=== PATIENT | male | born 1950 | race Caucasian/White ===

== ENCOUNTER 2022-03-07 15:53 | Outpatient (RCR) | payer MEDICARE, SELFPAY ==
--- NOTE | 2022-03-07 16:38 | PTOPEVAL ---
Thank you for referring Aditya Trujillo to [facility].? The patient is scheduled to be seen for therapy? ____x/week for ___ weeks. Please review, sign, date and return this plan of care JAMES. I agree with and certify that the following plan of care is medically necessary. Referring Physician Date Admitting Provider: Attending Provider: Sina Glaser, MD Referring Provider: *PT Outpatient Evaluation Start: 03/07/22 16:08 Freq: Status: Active Protocol: Document 03/07/22 16:10 [facility] (Rec: 03/07/22 16:38 [facility] [email or web address]) Therapy Assessment Status Assessment Status Assessment Status Evaluation Evaluation Information Problem Diagnosis L leg pain Onset 03/02/22 Additional Evaluation Detail LEFS = 52% functionally declined Subjective Information patient reports he has pain in Query Text:As Reported By Patient/ the L LE. he reports he isnot Family sure what happened. he reports the only thing he can recall is sitting on the ground with his granddaughter and trying to get up a few times. he reports the pain is up in his L posterior hip/ buttock. he reports he has a history of soreness in the lower back. he reports last he was pretty bad at the MD's office. however, since starting pain meds he has been feeling better. he reports the pain will come down the leg, along the side of his thigh, and down to his calf. he reports sitting and wlaking are alright, but he is stiff in the morning. he reports no NTB. Prior Level of Function Comments Additional Prior Level of Function prior to 2 weeks ago, he was Comments getting around well. he reports he was using no AD and no pain meds. Pain Assessment Timing of Pain Assessment Timing of Pain Assessment Assessment Pain Scale Pain Scale Used Numeric (1 - 10) Self Report Pain Assessment Left Leg(s) Reported Pain Level 2 Greatest Pain Intensity 8 Pain Score Pain Score 2: Self Report Interventions Used Interventions Used By Clinicians Medication,Rest Cervical and Lumbar ROM Lumbar ROM Lumbar Flexion A
--- NOTE | 2022-03-07 16:46 | PTOPEVAL ---
Thank you for referring Aditya Trujillo to [facility].? The patient is scheduled to be seen for therapy? ____x/week for ___ weeks. Please review, sign, date and return this plan of care JAMES. I agree with and certify that the following plan of care is medically necessary. Referring Physician Date Admitting Provider: Attending Provider: Sina Glaser, MD Referring Provider: *PT Outpatient Evaluation Start: 03/07/22 16:08 Freq: Status: Active Protocol: Document 03/07/22 16:10 [facility] (Rec: 03/07/22 16:38 [facility] [email or web address]) Therapy Assessment Status Assessment Status Assessment Status Evaluation Evaluation Information Problem Diagnosis L leg pain Onset 03/02/22 Additional Evaluation Detail LEFS = 52% functionally declined Subjective Information patient reports he has pain in Query Text:As Reported By Patient/ the L LE. he reports he isnot Family sure what happened. he reports the only thing he can recall is sitting on the ground with his granddaughter and trying to get up a few times. he reports the pain is up in his L posterior hip/ buttock. he reports he has a history of soreness in the lower back. he reports last he was pretty bad at the MD's office. however, since starting pain meds he has been feeling better. he reports the pain will come down the leg, along the side of his thigh, and down to his calf. he reports sitting and wlaking are alright, but he is stiff in the morning. he reports no NTB. Prior Level of Function Comments Additional Prior Level of Function prior to 2 weeks ago, he was Comments getting around well. he reports he was using no AD and no pain meds. Pain Assessment Timing of Pain Assessment Timing of Pain Assessment Assessment Pain Scale Pain Scale Used Numeric (1 - 10) Self Report Pain Assessment Left Leg(s) Reported Pain Level 2 Greatest Pain Intensity 8 Pain Score Pain Score 2: Self Report Interventions Used Interventions Used By Clinicians Medication,Rest Cervical and Lumbar ROM Lumbar ROM Lumbar Flexion A
--- NOTE | 2022-03-23 16:31 | PTOPEVAL ---
Thank you for referring Aditya Trujillo to [facility].? The patient is scheduled to be seen for therapy? __2__x/week for 6 visits. Please review, sign, date and return this plan of care JAMES. I agree with and certify that the following plan of care is medically necessary. Referring Physician Date Admitting Provider: Attending Provider: Sina Glaser, Referring Provider: Ayan Sierra MD *PT Outpatient Evaluation Start: 03/07/22 16:08 Freq: Status: Active Protocol: Document 03/23/22 16:00 [facility] (Rec: 03/23/22 16:30 [facility] [email or web address]) Therapy Assessment Status Assessment Status Assessment Status Progress Evaluation Information Problem Diagnosis left leg pain, left shoulder pain, rotator cuff tear Onset 03/02/22 Subjective Information Pt. enters the clinic with new Query Text:As Reported By Patient/ order to address left Family shoulder pain. He reports that he has had on/off therapy to address shoulder pain in the past. He states that in the last month the soreness in the left shoulder has increased. Pt. reports that he underwent MRI of the left shoulder which revealed a rotator cuff tear. He reports that the doctor felt that he is not a surgical candidate. He reports most pain with reaching overhead and pain is mostly located on the backside of the shoulder and occassionally into the front side. He reports that he would like to improve his mobility reaching overhead and reduce the pain in the left shoulder. Pt. reports that left leg pain is less intense and he is no longer walking with a cane. He reports that he would like to focus on the left shoulder for the remainder of therapy. Pain Assessment Timing of Pain Assessment Timing of Pain Assessment Pre-Treatment Pain Scale Pain Scale Used Numeric (1 - 10) Self Report Pain Assessment Left Shoulder(s) Reported Pain Level 2 Left Leg(s) Reported Pain Level 1 Pain Score
--- NOTE | 2022-04-07 16:00 | PTOPEVAL ---
Thank you for referring Aditya Trujillo to [facility].? The patient is scheduled to be seen for therapy? 1x/week for 2 visits. Please review, sign, date and return this plan of care JAMES. I agree with and certify that the following plan of care is medically necessary. Referring Physician Date Admitting Provider: Attending Provider: Sina Glaser, Referring Provider: Ayan Sierra MD *PT Outpatient Evaluation Start: 03/07/22 16:08 Freq: Status: Active Protocol: Document 04/07/22 15:00 [facility] (Rec: 04/07/22 16:00 [facility] [email or web address]) Therapy Assessment Status Assessment Status Assessment Status Progress Evaluation Information Problem Diagnosis Left shoulder pain, L rotator cuff tear Onset 03/02/22 Subjective Information Pt reports his shoulder is Query Text:As Reported By Patient/ slightly more sore today. He Family thinks it might be partly from holding his granddaughter on his arm. He does not really feel limited in what he does around the house, just has some soreness or discomfort when performing these activities. Pain Assessment Timing of Pain Assessment Timing of Pain Assessment Pre-Treatment Pain Scale Pain Scale Used Numeric (1 - 10) Self Report Pain Assessment Left Shoulder(s) Reported Pain Level 2 Left Leg(s) Reported Pain Level 0 Pain Score Pain Score 2,0: Self Report Interventions Used Interventions Used By Clinicians Activity or ADL's,Education, Electrical Stimulation, Exercise,Heat Upper Extremity Range of Motion General Upper Extremity Range of Motion Gross Upper Extremity Range of Motion L shoulder flexion AROM: 155 Comments degrees L shoulder abd AROM: 96 deg L shoulder ER: 83 degrees L shoulder IR HBB: T11 (R T11) Upper Extremity Muscle Strength Testing General Upper Extremity Strength Gross Upper Extremity Strength Comments R shoulder flexion: 5/5 L shoulder flexion: 4+/5 R shoulder abduction: 5/5 L shoulder abduction: 5/5 R shoulder ER: 5/5 L shoulder ER: 5/5 R shoulder IR: 5/5 L shoulder IR: 5/5 Palpation Assessment Palpation Palpation Slight TTP in supraspinatus insertion Spe
== END 2022-04-21 14:14 | disposition home or self-care (01) ==
LOC: CHSPT 15:53
PROVIDERS: PCP Family Medicine; Referring Provider Orthopaedic Surgery; Visit Provider Family Medicine
DX: M79.605 Pain in left leg (principal); M75.100 Unspecified rotator cuff tear or rupture of unspecified shoulder, not specified as traumatic
CPT/HCPCS: 97014; 97110; 97140; 97161; G0283

== ENCOUNTER 2023-04-04 15:31 | Outpatient (RCR) | payer MEDICARE, SELFPAY ==
--- NOTE | 2023-04-04 17:24 | PTOPEVAL1 ---
Assessment and note entered by JT File, PT Evaluation Information Assessment Status Evaluation Diagnosis L LE radicular pain Onset 04/03/23 Subjective Information Patient reports pain in the lower back and L leg down to the knee that has been present for a few months. He visited the doctor and recieived an x- ray and MRI, finding some arthritis present. He notes difficulty with walking and going up stairs, which increases pain in L hip and knee. He notes he has 7 stairs to enter his home, and currently relies heavily on pulling on the railing to ascend . Patient reports prior to the onset of pain he could walk about 3-4 minutes without stopping, however now is unable to do so. He notes increased stiffness and soreness in the lower back in the mornings after waking up. 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 Reported Pain Level Pain Score 0,0,0: Self Report Assessment PT Clinical Summary Mr. Trujillo is a 72 y/o male presents to skilled PT to address radicular pain of L LE. He reports difficulty with upright activity such as walking for greater than 1 minute and climbing stairs. These activities cause a large increase in L hip and knee pain, however he also reports lower back pain with continued activites. Patient presents with deficits in trunk ROM, core strength, LE strength, and flexibility. He currently has 30% functional decline as assessed by the LEFS. Appropriate to continue skilled therapy to address goals and aid in returning to patient's prior level of function. Plan of Care Interventions Electrical Stimulation,Gait Training,Hot Pack/Cold Pack,Manual Therapy,Mechanical Traction,Neuro Re- education,Patient/Caregiver Educati,Therapeutic Activities,Therapeutic Exercise PT Services Indicated Yes Treatment Frequency and 3x/week for 12 visits Duration These treatments will address the objective and functional deficits as defined above. The patient will be advanced safely and appropriately in order for the patient to progress towards his/her prior level of function. Additional exercises will be introduced and as well as a comprehensive home exercise program upon discharge, if needed, ?to ensure carryover of functional gains achieved in the clinic. This treatment plan has been reviewed and agreement upon by the patient.
--- NOTE | 2023-04-04 17:27 | OPREHPOC ---
Outpatient Therapy Plan of Care This is a Multidisciplinary Plan of Care that may contain components documented by all disciplines (PT, OT, and ST.) PT Problem 1 PT Problem #1 Knowledge Deficit PT Goal 1 Goal 1. Pt to demonstrate independence with HEP to improve progress made in PT. Target Visit 6 PT Problem 2 PT Problem #2 Impaired Strength PT Goal 1 Goal 1. Patient to improve L hip extension strength to 4-/5 or greater to improve patient's ability to squat to floor to sisal picker item. 2. Patient to improve abdominal strength to 4/5 or greater to improve core stability with activities . Target Visit 12 PT Problem 3 PT Problem #3 Impaired Flexibility PT Goal 1 Goal 1. Patient to improve bilateral hamstring length to lacking 20 degrees or less to improve patient's ability to reach to don/doff socks. Target Visit 12 PT Problem 4 PT Problem #4 Pain PT Goal 1 Goal 1. Patient to report no greater than 2/10 pain in L hip and knee with stair climbing to improve patient's ability to enter home. Target Visit 12 PT Problem 5 PT Problem #5 Impaired Functional Mobil PT Goal 1 Goal 1. Patient to ascend stairs with unilateral hand support to allow for improved mobility in home and community. 2. Patient to walk 6 minutes without requiring a rest break to improve endurance for walking in stores. Target Visit 12
--- NOTE | 2023-04-09 15:32 | PCPTNOTE ---
patient had to cancel skilled PT today due to issues with allergies. he is currently scheduled to return to therapy tomorrow Sunday04/10/23.
--- NOTE | 2023-04-24 15:47 | OPREHPOC ---
Outpatient Therapy Plan of Care This is a Multidisciplinary Plan of Care that may contain components documented by all disciplines (PT, OT, and ST.) PT Problem 1 PT Problem #1 Knowledge Deficit PT Goal 1 Goal 1. Pt to demonstrate independence with HEP to improve progress made in PT. Target Visit 6 Progress Met PT Problem 2 PT Problem #2 Impaired Strength PT Goal 1 Goal 1. Patient to improve L hip extension strength to 4-/5 or greater to improve patient's ability to squat to floor to flower picker item. 2. Patient to improve abdominal strength to 4/5 or greater to improve core stability with activities . Target Visit 12 Comment progressing PT Problem 3 PT Problem #3 Impaired Flexibility PT Goal 1 Goal 1. Patient to improve bilateral hamstring length to lacking 20 degrees or less to improve patient's ability to reach to don/doff socks. Target Visit 12 Comment progressing PT Problem 4 PT Problem #4 Pain PT Goal 1 Goal 1. Patient to report no greater than 2/10 pain in L hip and knee with stair climbing to improve patient's ability to enter home. Target Visit 12 Comment progressing PT Problem 5 PT Problem #5 Impaired Functional Mobil PT Goal 1 Goal 1. Patient to ascend stairs with unilateral hand support to allow for improved mobility in home and community. 2. Patient to walk 6 minutes without requiring a rest break to improve endurance for walking in stores. Target Visit 12 Comment progressing
--- NOTE | 2023-04-24 15:47 | PTOPEVAL1 ---
Assessment and note entered by Luz Marina Browning DPT Evaluation Information Assessment Status Progress Diagnosis L LE radicular pain Onset 04/03/23 Subjective Information Patient reports since starting PT his pain is less frequent but same intensity. He reports he has been able to play with his grandson but has most pain with step/stairs. Reported Pain Level Pain Score 8,8,8: Self Report Assessment PT Clinical Summary Patient has been seen for 10 visits of skilled PT. Patient is progressing towards goals at this time . He demonstrates improved LE strength and reports ability to play with his grandson. Patient continues to lack strength, flexibility and has increased pain levels with stair navigation. He would benefit from continued skilled PT for remaining 2 visits to address impairments and return to PLOF. Plan of Care Interventions Electrical Stimulation,Gait Training,Hot Pack/Cold Pack,Manual Therapy,Mechanical Traction,Neuro Re- education,Patient/Caregiver Educati,Therapeutic Activities,Therapeutic Exercise PT Services Indicated Yes Treatment Frequency and continue with remaining 2 visits Duration These treatments will address the objective and functional deficits as defined above. The patient will be advanced safely and appropriately in order for the patient to progress towards his/her prior level of function. Additional exercises will be introduced and as well as a comprehensive home exercise program upon discharge, if needed, ?to ensure carryover of functional gains achieved in the clinic. This treatment plan has been reviewed and agreement upon by the patient.
--- NOTE | 2023-04-27 13:45 | OPREHPOC ---
Outpatient Therapy Plan of Care This is a Multidisciplinary Plan of Care that may contain components documented by all disciplines (PT, OT, and ST.) PT Problem 1 PT Problem #1 Knowledge Deficit PT Goal 1 Goal 1. Pt to demonstrate independence with HEP to improve progress made in PT. Target Visit 6 Progress Met PT Problem 2 PT Problem #2 Impaired Strength PT Goal 1 Goal 1. Patient to improve L hip extension strength to 4-/5 or greater to improve patient's ability to squat to floor to pick pulling machine operator item. 2. Patient to improve abdominal strength to 4/5 or greater to improve core stability with activities . Target Visit 12 Progress Met Comment progressing PT Problem 3 PT Problem #3 Impaired Flexibility PT Goal 1 Goal 1. Patient to improve bilateral hamstring length to lacking 20 degrees or less to improve patient's ability to reach to don/doff socks. Target Visit 12 Progress Not Met Comment progressing PT Problem 4 PT Problem #4 Pain PT Goal 1 Goal 1. Patient to report no greater than 2/10 pain in L hip and knee with stair climbing to improve patient's ability to enter home. Target Visit 12 Progress Not Met Comment progressing PT Problem 5 PT Problem #5 Impaired Functional Mobil PT Goal 1 Goal 1. Patient to ascend stairs with unilateral hand support to allow for improved mobility in home and community. 2. Patient to walk 6 minutes without requiring a rest break to improve endurance for walking in stores. Target Visit 12 Progress Met Comment progressing
--- NOTE | 2023-04-27 13:46 | PTOPDC ---
Assessment and note entered by Luz Marina Browning DPT Evaluation Information Assessment Status Progress Diagnosis L LE radicular pain Onset 04/03/23 Subjective Information Patient reports he has been able to walk with greater ease. He reports he has been able to navigate stairs with improvement as well. He reports pain is still present. He reports he is independent with HEP. Reported Pain Level Pain Score 5,5,5: Self Report Assessment PT Clinical Summary Patient was seen for 12 visits of skilled PT. He demonstrates improved B LE strength, impaired ambulation ability and improved ability to navigate stairs. He reports he does still have pain but pain is less frequent. He is independent HEP and is appropriate for DC at this time. Plan of Care PT Services Indicated No
== END 2023-04-27 13:34 | disposition home or self-care (01) ==
LOC: CHSPT 15:31
PROVIDERS: PCP Family Medicine; Visit Provider Family Medicine
DX: M54.10 Radiculopathy, site unspecified (principal)
CPT/HCPCS: 97014; 97110; 97140; 97150; 97161; G0283